=== PATIENT | female | born 1990 | race Two or more races ===

== ENCOUNTER 2017-03-26 11:56 | Emergency (ER) | payer MEDICAID ==
[2017-03-26] MEDS ORDERED: 0.9 % SODIUM CHLORIDE 1,000 ML BAG IV ONE ×2 (12:07→14:41)
[2017-03-26] MEDS ORDERED: DIPHENHYDRAMINE HCL IV 50 MG/ML VIAL IVP ONE (12:07)
[2017-03-26] MEDS ORDERED: PROMETHAZINE HCL 25 MG/ML VIAL IVP ONE (12:07)
[2017-03-26] MEDS ORDERED: LORAZEPAM 2 MG/ML VIAL IV ONE (12:08)
--- NOTE | 2017-03-26 12:08 | Emergency Department Record ---
History of Present Illness - General Chief complaint: Pain Stated complaint: PAIN ALL OVER Time Seen by Provider: 03/26/17 12:01 Source: Patient, Family Mode of Arrival: Ambulatory Limitations: No limitations - History of Present Illness Initial comments: 26 yo female presents with nausea, vomiting, pain all over since 5 pm last night. The patient overdosed about 5 days ago on heroine, crack and xanax. She was intubated in a [facility] hospital. She was discharged yesterday. She states the pain is all over her body. She has had loose stools as well. She has a past of addiction for about 4-5 years. She had been sober for about 3 months until she left a rehab center. She denies any history of abdominal surgery. No PCP. She was referred to a local [facility]. Her mother brought her to the ED. She has a history of Hepatitis C and MRSA. MD Complaint: Abdominal Pain, Other (Nausea and Vomiting) -: Hour(s) (19) -: Yes Myalgia Radiation: Other Quality: Aching Consistency: Constant Improves with: Nothing Worsens with: Nothing Associated Symptoms: Other - Related Data Home Medications Medication Instructions Recorded Confirmed Last Taken Loperamide HCl [Loperamide] 2 mg PO Q4H PRN 03/26/17 03/26/17 03/26/17 08:00 Ondansetron HCl [Zofran] 4 mg PO Q6H PRN 03/26/17 03/26/17 03/26/17 11:00 Quetiapine Fumarate [Seroquel] 25 mg PO BID 03/26/17 03/26/17 03/26/17 08:00 Allergies Allergy/AdvReac Type Severity Reaction Status Date / Time No Known Drug Allergies Allergy Verified 03/26/17 12:04 Review of Systems Constitutional: Reports: Chills, Malaise, Weakness. Denies: Fever Eyes: Denies: Eye discharge, Eye pain, Photophobia, Vision change ENT: Denies: Congestion, Throat pain Respiratory: Denies: Cough, Dyspnea, Hemoptysis, Stridor, Wheezes Cardiovascular: Reports: Chest pain Endocrine: Reports: Fatigue Gastrointestinal: Reports: Abdominal pain, Diarrhea, Nausea, Vomiting Genitourinary: Denies: Dysuria, Urgency Musculoskeletal: Reports: Myalgia. Denies: Arthralgia, Back pain, Joint swelling Skin: Denies: Bruising, Change in color, Rash Neurological: Denies: Confusion, Headache, Numbness, Weakness Psychiatric: Reports: Anxiety Hematological/Lymphatic: Denies: Blood Clots, Easy bleeding, Easy bruising, Swollen glands Past Medical History - SOCIAL HISTORY Smoking Status: Current every day smoker Drug Use: None - RESPIRATORY Hx Respiratory Disorders: No - CARDIOVASCULAR Hx Cardio Disorders: No - NEURO Hx Neuro Disorders: No - GI Hx GI Disorders: No - Hx Genitourinary Disorders: No - ENDOCRINE Hx Endocrine Disorders: No - MUSCULOSKELETAL Hx Musculoskeletal Disorders: No - PSYCH Hx Psych Problems: No - HEMATOLOGY/ONCOLOGY Hx Hematology/Oncology Disorders: No Physical Exam - General General Appearance: Alert, Oriented x3, Cooperative, Anxious (anxous due to pain all over, vomiting and diarrhea) Limitations: Other (No confusion, oriented) - Head Head exam: Atraumatic, Normal inspection - Eye Eye exam: Normal appearance, PERRL, EOMI. negative: Conjunctival injection, Scleral icterus - ENT ENT exam: Normal exam, Mucous membranes moist Ear exam: Normal external inspection Nasal Exam: Normal inspection Mouth exam: Normal external inspection Teeth exam: Normal inspection Throat exam: Normal inspection - Neck Neck exam: Normal inspection, Full ROM. negative: Tenderness - Respiratory Respiratory exam: Normal lung sounds bilaterally. negative: Respiratory distress - Cardiovascular Cardiovascular Exam: Regular rate, Normal rhythm, Normal heart sounds - GI/Abdominal GI/Abdominal exam: Soft, Tenderness (diffuse). negative: Distended, Guarding, Rebound, Rigid - Rectal Rectal exam: Deferred - exam: Deferred - Extremities Extremities exam: Normal inspection, Full ROM, Normal capillary refill, Other ( old tracks in the skin). negative: Tenderness - Back Back exam: Reports: Normal inspection - Neurological Neurological exam: Alert, Oriented X3. negative: Altered, CN II-XII intact - Psychiatric Psychiatric exam: Anxious - Skin Skin exam: Dry, Intact, Normal color, Warm Course - Reevaluation(s) Reevaluation #1: 03/26/17 12:08 The patient is very anxious, crying because of pain all over. No confusion, oriented and conversational, recalls much of past medical history Vitals reviewed No tachycardia, hypoxia, or hypotension Will attempt to get a DC Summary from [facility] 03/26/17 12:25 EKG rate 74, intervals normal, axis normal, poor r wave progression, NS infer T wave changes, no old 03/26/17 12:27 03/26/17 12:35 On recheck she is much calmer. The nausea is improved. The pain in the chest and abdomen are improved. The abdomen is very soft. 03/26/17 12:45 The CBC was reviewed. No acute changes No changes on the BMP. The alcohol level is negative 03/26/17 12:58 The CMP was reviewed. AST 170 and AST 174. Lipase 76. Normal AG and HCO3 03/26/17 13:04 The HCG is negative The patient is resting comfortably Vitals stable. 03/26/17 13:07 03/26/17 15:42 IV was established for CTA. The patient is still sleepy after the medications. Will wait until little more alert. 03/26/17 17:28 The CTA of the chest is negative. 03/26/17 17:30 The patient is still sleepy but answers questions. She is oriented to person and place. Waiting for repeat troponin and patient to continue to become more alert 03/26/17 18:03 The patient's repeat troponin is negative She continues to slowly wake up from the initial medications 03/26/17 19:03 The case was signed out to Dr Christianson for reassessment The case was turned over at bedside. She answers questions appropriately but still sleepy. Medical Decision Making - Lab Data Result diagrams: 03/26/17 12:15 03/26/17 12:15 Disposition Clinical Impression: Narcotic withdrawal Nausea and vomiting Qualifiers: Vomiting type: unspecified Vomiting Intractability: unspecified Qualified Code( s): R11.2 - Nausea with vomiting, unspecified Forms: Patient Portal Access Quality - Quality Measures Quality Measures: N/A - Blood Pressure Screening Does Patient Have Any of the Following: No Blood Pressure Classification: Hypertensive Reading Systolic Measurement: 121 Diastolic Measurement: 112
[2017-03-26 12:26] LABS: HEMATOCRIT 43.7 % (35.0-47.0); HEMOGLOBIN 14.7 gm/dl (11.6-16.0); MEAN CELL VOLUME 87.4 fl (81-97); MEAN CORPUSCULAR HEMOGLOBIN 29.4 pg (27-33); MEAN CORPUSCULAR HGB CONC 33.6 g/dl (32-36); MEAN PLATELET VOLUME 9.5 fl (7.4-10.4); PLATELET COUNT 367 K/uL (130-400); RED CELL DISTRIBUTION WIDTH 14.5 % (11.5-14.5); WHITE BLOOD COUNT W/O DIFF 9.3 K/uL (4.2-12.2)
[2017-03-26 12:37] LABS: CREATININE 0.5 mg/dL (0.5-0.9); EST GLOMERULAR FILTRATION RATE > 60 mL/min
[2017-03-26 12:43] LABS: LIPASE 76 U/L (13-60)
[2017-03-26] MEDS: KETOROLAC 30 MG/ML VIAL IVP ONE ×2 (13:00→13:03)
[2017-03-26 14:09] LABS: GLUCOSE,RANDOM 134 mg/dL (74-109)
[2017-03-26 14:10] LABS: BLOOD UREA NITROGEN 13 mg/dL (6-20)
[2017-03-26 14:11] LABS: ALBUMIN 3.7 g/dL (4.0-5.0); TOTAL PROTEIN 7.3 g/dL (6.6-8.7)
[2017-03-26 14:13] LABS: ALKALINE PHOSPHATASE 82 U/L (35-104); ALT/SGPT 144 U/L (<33); AST/SGOT 122 U/L (10.0-35.0)
[2017-03-26] MEDS ORDERED: ONDANSETRON HCL IV 4 MG/2 ML VIAL IVP ONE (16:24)
--- NOTE | 2017-03-26 20:10 | Emergency Department Record ---
History of Present Illness - General Chief complaint: Pain Stated complaint: PAIN ALL OVER Time Seen by Provider: 03/26/17 12:01 Source: Patient, Family Mode of Arrival: Ambulatory Limitations: Other (No confusion, oriented) - History of Present Illness Onset/Timin -: Hour(s) (19) Location: Other Radiation: Other Severity scale (1-10): 10 Quality: Aching Consistency: Constant Improves with: Nothing Worsens with: Nothing Associated Symptoms: Other - Related Data Home Medications Medication Instructions Recorded Confirmed Last Taken Loperamide HCl [Loperamide] 2 mg PO Q4H PRN 03/26/17 03/26/17 03/26/17 08:00 Ondansetron HCl [Zofran] 4 mg PO Q6H PRN 03/26/17 03/26/17 03/26/17 11:00 Quetiapine Fumarate [Seroquel] 25 mg PO BID 03/26/17 03/26/17 03/26/17 08:00 Allergies Allergy/AdvReac Type Severity Reaction Status Date / Time No Known Drug Allergies Allergy Verified 03/26/17 12:04 Travel Screening - Travel/Exposure Within Last 30 Days Have you traveled within the last 30 days?: No - Travel/Exposure Within Last Year Have you traveled outside the [place] in the last year?: No - Additonal Travel Details Have you been exposed to anyone with a communicable illness?: No - Travel Symptoms Symptom Screening: None Review of Systems Constitutional: Reports: Chills, Malaise, Weakness. Denies: Fever Eyes: Denies: Eye discharge, Eye pain, Photophobia, Vision change ENT: Denies: Congestion, Throat pain Respiratory: Denies: Cough, Dyspnea, Hemoptysis, Stridor, Wheezes Cardiovascular: Reports: Chest pain Endocrine: Reports: Fatigue Gastrointestinal: Reports: Abdominal pain, Diarrhea, Nausea, Vomiting Genitourinary: Denies: Dysuria, Urgency Musculoskeletal: Reports: Myalgia. Denies: Arthralgia, Back pain, Joint swelling Skin: Denies: Bruising, Change in color, Rash Neurological: Denies: Confusion, Headache, Numbness, Weakness Psychiatric: Reports: Anxiety Hematological/Lymphatic: Denies: Blood Clots, Easy bleeding, Easy bruising, Swollen glands Past Medical History - SOCIAL HISTORY Smoking Status: Current every day smoker Drug Use: None - RESPIRATORY Hx Respiratory Disorders: No - CARDIOVASCULAR Hx Cardio Disorders: No - NEURO Hx Neuro Disorders: No - GI Hx GI Disorders: No - Hx Genitourinary Disorders: No - ENDOCRINE Hx Endocrine Disorders: No - MUSCULOSKELETAL Hx Musculoskeletal Disorders: No - PSYCH Hx Psych Problems: No - HEMATOLOGY/ONCOLOGY Hx Hematology/Oncology Disorders: No Family Medical History Any Significant Family History?: No Physical Exam - General Limitations: Other (No confusion, oriented) Course Vital Signs 03/26/17 03/26/17 03/26/17 11:57 13:07 16:09 Temperature 98 F Pulse Rate 63 Pulse Rate [ 84 67 Pulse Ox Probe] Respiratory 24 12 12 Rate Blood Pressure 121/112 Blood Pressure 130/89 [Left Arm] Pulse Ox 99 93 L 97 03/26/17 18:30 Temperature 98.6 F Pulse Rate Pulse Rate [ 79 Pulse Ox Probe] Respiratory 18 Rate Blood Pressure Blood Pressure 118/73 [Left Arm] Pulse Ox 96 - Reevaluation(s) Reevaluation #1: 03/26/17 20:09 In to re-evaluate the patient, arouses to voice, reports that she needs to use the bathroom. Will perform ambulation trial and reassess. Reevaluation #2: 03/26/17 20:36 Patient reassessed, she is awake, alert, sitting up and eating food tray. Patient appears stable for discharge at this time with her mother. Medical Decision Making - Lab Data Result diagrams: 03/26/17 12:15 03/26/17 12:15 Lab Results 03/26/17 03/26/17 03/26/17 Range/Units 12:15 12:15 12:15 WBC 9.3 (4.2-12.2) K/uL RBC 5.00 (3.80-5.40) M/uL Hgb 14.7 (11.6-16.0) gm/dl Hct 43.7 (35.0-47.0) % MCV 87.4 (81-97) fl MCH 29.4 (27-33) pg MCHC 33.6 (32-36) g/dl RDW 14.5 (11.5-14.5) % Plt Count 367 (130-400) K/uL MPV 9.5 (7.4-10.4) fl Neutrophils % 65.0 (47-80) % Eosinophils % Not Reportable Basophils % Not Reportable Lymphocytes 28.0 (16-45) % Monocytes 7.0 (0-9) % D-Dimer (0-0.59) mg/L FEU Sodium 139 (136-145) mmol/L Potassium 4.3 (3.4-4.5) mmol/L Chloride 96 L (98-107) mmol/L Carbon Dioxide 28.0 (22-29) mmol/L Anion Gap 15.0 (7-16) BUN 13 (6-20) mg/dL Creatinine 0.5 (0.5-0.9) mg/dL Estimated GFR > 60 mL/min Random Glucose 134 H (74-109) mg/dL Calcium 9.4 (8.6-10.0) mg/dL Total Bilirubin 0.40 (0.2-1.0) mg/dL AST 122 H (10.0-35.0) U/L ALT 144 H (<33) U/L Alkaline Phosphatase 82 (35-104) U/L Troponin T (0-0.010) ng/mL Total Protein 7.3 (6.6-8.7) g/dL Albumin 3.7 L (4.0-5.0) g/dL Globulin 3.6 (1.4-4.8) gm/dL Albumin/Globulin Ratio 1.0 L (1.1-1.8) Lipase 76 H (13-60) U/L Serum HCG, Qual Negative (NEGATIVE) Ethyl Alcohol 0.010 (0-0.010) g/dL 03/26/17 03/26/17 03/26/17 Range/Units 12:15 13:22 17:22 WBC (4.2-12.2) K/uL RBC (3.80-5.40) M/uL Hgb (11.6-16.0) gm/dl Hct (35.0-47.0) % MCV (81-97) fl MCH (27-33) pg MCHC (32-36) g/dl RDW (11.5-14.5) % Plt Count (130-400) K/uL MPV (7.4-10.4) fl Neutrophils % (47-80) % Eosinophils % Basophils % Lymphocytes (16-45) % Monocytes (0-9) % D-Dimer 1.95 H (0-0.59) mg/L FEU Sodium (136-145) mmol/L Potassium (3.4-4.5) mmol/L Chloride (98-107) mmol/L Carbon Dioxide (22-29) mmol/L Anion Gap (7-16) BUN (6-20) mg/dL Creatinine (0.5-0.9) mg/dL Estimated GFR mL/min Random Glucose (74-109) mg/dL Calcium (8.6-10.0) mg/dL Total Bilirubin (0.2-1.0) mg/dL AST (10.0-35.0) U/L ALT (<33) U/L Alkaline Phosphatase (35-104) U/L Troponin T < 0.010 < 0.010 (0-0.010) ng/mL Total Protein (6.6-8.7) g/dL Albumin (4.0-5.0) g/dL Globulin (1.4-4.8) gm/dL Albumin/Globulin Ratio (1.1-1.8) Lipase (13-60) U/L Serum HCG, Qual (NEGATIVE) Ethyl Alcohol (0-0.010) g/dL Disposition Disposition: Discharge Clinical Impression: Narcotic withdrawal Nausea and vomiting Qualifiers: Vomiting type: unspecified Vomiting Intractability: unspecified Qualified Code( s): R11.2 - Nausea with vomiting, unspecified Disposition: Home, Self-Care Condition: (2) Stable Instructions: Acute Diarrhea (ED) Additional Instructions: Return to ED if your symptoms worsen or if you have any concerns. Follow-up with methadone clinic tomorrow as scheduled. Follow-up with your family doctor in 1-3 days as directed. Forms: Patient Portal Access Time of Disposition: 20:39 Quality - Quality Measures Quality Measures: N/A - Blood Pressure Screening Does Patient Have Any of the Following: No Blood Pressure Classification: Hypertensive Reading Systolic Measurement: 121 Diastolic Measurement: 112 Screening for High Blood Pressure: < First Hypertensive BP, F/U Documented > [ [id number]] First Hypertensive Follow-up Interventions: Referral to alternative/primary care provider.
--- NOTE | 2017-03-27 23:23 | CT ANGIOGRAM REPORT ---
EXAM: CT ANGIOGRAM CHEST CTA w contrast HISTORY: RECENT INTUBATION. TECHNIQUE: CTA chest performed using pulmonary embolus protocol following IV administration of 90 mL Omnipaque-350 contrast. Axial images were obtained with coronal and sagittal MIP reconstructions. COMPARISON: None. FINDINGS: There is significant artifact from the majority of the contrast bolus within the vena cava. However, there is no intraluminal filling defect to suggest pulmonary embolus. Negative for thoracic aortic aneurysm or dissection. The heart and pericardium are unremarkable. No mediastinal or hilar adenopathy. Limited evaluation of the upper abdomen is unremarkable. Osseous structures are grossly intact. Moderate motion artifact. The visualized airways are patent. Minimal subsegmental atelectasis in each lung base. IMPRESSION: NEGATIVE FOR PULMONARY EMBOLUS, THORACIC AORTIC ANEURYSM OR DISSECTION. NEGATIVE FOR ACUTE INTRATHORACIC PROCESS. JOB NUMBER: [id number] [facility] [facility]
== END 2017-03-26 21:27 | disposition home or self-care (01) ==
LOC: ER 11:56
DX: F11.23 Opioid dependence with withdrawal (principal); R07.9 Chest pain, unspecified; R10.9 Unspecified abdominal pain; R11.2 Nausea with vomiting, unspecified; R19.7 Diarrhea, unspecified; R10.84 Generalized abdominal pain; F17.210 Nicotine dependence, cigarettes, uncomplicated
CPT/HCPCS: 99284 ×2; 96374; 96375; 96361; 83690; 80053; 84703; 84484; 85379; 85027; 71275; 93005; 93010; G0480; Q9967; J2405; J2060; 80320; J1200; J1885; J2550; J7030